=== PATIENT | male | born 1975 | race Caucasian/White ===

== ENCOUNTER 2022-08-05 15:43 | Emergency (ER) | payer BC, SELFPAY ==
--- NOTE | ~2022-08-05 | CT_ITS ---
EXAMINATION: CT ABDOMEN AND PELVIS WITH CONTRAST CLINICAL INFORMATION: Left lower quadrant pain. COMPARISON: None available. TECHNIQUE: Multidetector volumetric images were obtained from the superior aspect of the liver through the pubic symphysis following administration 85 mL of Omnipaque 350 intravenous contrast. Sagittal and coronal reformatted images were obtained on the technologist's workstation. Oral contrast: No This CT examination was performed using dose optimization techniques as appropriate, variously including the following: *Automated exposure control *Adjustment of mA and/or kV according to patient size (this includes techniques or standardized protocols for targeted exams where dose is matched to indication/reason for exam; i.e. extremities or head) *Use of iterative reconstruction technique DLP: 658 mGy-cm FINDINGS: LUNG BASES: The visualized lung bases are unremarkable. LIVER, GALLBLADDER, AND BILIARY TREE: The liver is normal in size, shape, and attenuation. No focal hepatic lesion. Cholecystectomy with expected mild extrahepatic biliary ductal dilatation. No intrahepatic biliary ductal dilatation. PANCREAS: Unremarkable. SPLEEN: Unremarkable. ADRENAL GLANDS: Unremarkable. KIDNEYS AND URETERS: Hyperattenuating foci bilaterally are likely related with excretion of IV contrast, limiting evaluation of small calculi. Symmetric nephrograms. No hydronephrosis. Too small to characterize cortical hypodensity in the anterior lower left kidney (3:40), statistically favored to represent a simple cyst and for which no imaging follow-up is recommended. No perinephric fat stranding. BLADDER: Partially under distended limiting assessment of wall thickening. No perivesical fat stranding. No calcified intraluminal calculi. GASTROINTESTINAL TRACT: The stomach and the small bowel are nondilated. Normal appendix. Wall thickening with pericolonic fat stranding within a moderate to long segment of the descending colon. Background of colonic diverticulosis. No free air or organized extraluminal collection. No evidence of bowel obstruction. ABDOMINAL WALL: Fat-containing upper anterior abdominal wall hernias. A 2.2 cm soft tissue nodule along the undersurface of these hernias (3:24), is nonspecific but could be associated with prior postsurgical changes, correlate with surgical history. LYMPH NODES: No lymphadenopathy. VASCULAR: Abdominal aorta is normal in caliber. PELVIC VISCERA: Subtle coarse prostatic calcifications. Symmetric seminal vesicles. OSSEOUS STRUCTURES: No acute or aggressive appearing osseous abnormalities. CT/CT abdomen pelvis w IV con IMPRESSION: 1. Wall thickening and associated inflammatory changes involving a moderate to long segment of the descending colon within a background of diverticulosis. The degree of wall thickening with respect to the inflammatory changes, as well as the long segment favors acute colitis from over diverticulitis, although acute diverticulitis is not entirely excluded. No evidence of complications such as free air or organized extraluminal collection. Correlation with an outpatient colonoscopy is recommended after resolution of the acute process when clinically indicated for further evaluation and ensure the absence of underlying lesions. 2. Fat-containing upper anterior abdominal wall hernias. A 2.2 cm soft tissue nodule along the undersurface of these hernias is nonspecific but could be associated with prior postsurgical changes, correlate with physical examination and surgical history.
[2022-08-05 15:50] VITALS: BP 116/75; PULSE 93; RESP 20; TEMP 36.6; O2SAT 100; BMI 29.3
--- NOTE | 2022-08-05 15:51 | ED.GENADULT ---
HPI - General Adult General Chief complaint: Abdominal Pain Stated complaint: pain Time Seen by Provider: 08/05/22 16:10 Source: patient Mode of arrival: ambulatory Limitations: no limitations History of Present Illness HPI narrative: Patient comes to the emergency room complaining of nausea, left lower quadrant pain starting this morning. Patient states that he has history of diverticulitis and the pain is very similar. Denies history of kidney stones, denies hematuria or dysuria. Related Data Previous Rx's Medication Instructions Recorded levofloxacin 500 mg tablet 500 mg PO DAILY #9 tabs 08/05/22 metronidazole 500 mg tablet 500 mg PO BID #19 tabs 08/05/22 oxycodone 5 mg tablet 5 mg PO BID PRN pain #7 tabs 08/05/22 polyethylene glycol 3350 17 gram 17 g PO DAILY PRN laxative effect 08/05/22 oral powder packet (ClearLax) #14 ea Allergies Allergy/AdvReac Type Severity Reaction Status Date / Time No Known Allergies Allergy Verified 08/05/22 15:50 Review of Systems Review of Systems: Constitutional : No Weight loss, No Fever, No Chills, No Night Sweats, No Fatigue, No Malaise ENT/Mouth : No Hearing loss, No Ear Pain, No Nasal Congestion, No Sinus Pain, No Hoarseness, No sore throat, No Rhinorrhea, No Swallowing Difficulty Eyes: No Eye Pain, No Swelling, No Redness, No Foreign Body, No Discharge, No Vision Changes Cardiovascular : No Chest Pain, No SOB, No Dyspnea on Exertion, No Orthopnea, No Edema, No Palpitations Respiratory : No Cough, No Sputum, No Wheezing, No Smoke Exposure, No Dyspnea Gastrointestinal : Complaining of Nausea, No Vomiting, No Diarrhea, No Constipation, complaining of constant left lower quadrant pain nonradiating, no melena Genitourinary : no irregular bleeding, No Dysuria, No Urinary Frequency, No Hematuria, No Urinary Incontinence, No Urgency, No Flank Pain, No Urinary Flow Changes, No Hesitancy Musculoskeletal : No joint pain, No Myalgias, No Joint Swelling Skin : No Skin Lesions, No rash Neuro : No Weakness, No Numbness, No Paresthesias, No Loss of Consciousness, No Dizziness, No Headache Psych : No Anxiety/Panic, No Depression, No SI/HI/AH/VH, No Social Issues, Heme/Lymph: No Bruising, No Bleeding,No Lymphadenopathy Endocrine : No Polyuria, No Polydipsia, No Temperature Intolerance [facility] Past Medical History Medical History (Updated 08/05/22 @ 19:52 by Libertad Mccartney MD) Diverticulitis Surgical History (Updated 08/05/22 @ 16:19 by Libertad Mccartney MD) H/O hernia repair Social History Social History Alcohol intake: current Alcohol intake frequency: holidays/special occasions only Smoked in Last 30 Days: Yes Use of substances other than those prescribed or required for medical reasons: No Advance Directives: No Advance Directives Information Provided: No Physical Exam ED Vital Signs: Vital Signs - 24 hr 08/05/22 15:50 08/05/22 16:00 08/05/22 16:31 Temperature 97.8 F 98.7 F Pulse Rate 93 106 H Respiratory Rate 20 Blood Pressure 116/75 141/87 H Pulse Oximetry 100 98 Oxygen Delivery Method Room Air Room Air 08/05/22 18:09 08/05/22 19:37 Temperature 98 F Pulse Rate 84 57 Respiratory Rate 18 Blood Pressure 122/65 124/78 Pulse Oximetry 98 96 Oxygen Delivery Method Room Air Room Air BMI result Body Mass Index 29.3 Const Other: Appearance: Alert. Oriented X3. Seems uncomfortable Eyes: Pupils equal, round and reactive to light. ENT: Pharynx normal. Neck: Normal inspection. Neck supple. No lymph nodes noted. No crepitus CVS: Normal heart rate and rhythm. Pulses normal. Normal S1 and S2 Respiratory: No respiratory distress. Breath sounds normal. No Wheezing. No rales Abdomen: Soft , nondistended, tender to palpation in left flank and left lower quadrant, mild rebound, no guarding, not an acute abdomen Skin: Skin warm and dry. Normal skin color. Normal skin turgor. Extremities: No lower extremity edema. No Lacerations. No Rash Neuro: Oriented X 3. No motor deficit. No sensory deficit. Moving all extremities. No slurred speech. CN 2 through 12 grossly intact Psych: calm, cooperative, normal affect Course Course Course Narrative: This is an RME: Additional HPI, ROS, PE not included below will be deferred to primary provider. Patient is a 47 year old male with history of diverticulitis presenting with sudden onset LLQ abdominal pain today. Denies fever, chills. PE - LLQ tenderness Plan labs, imaging, urine Medications Administered Discontinued Medications Generic Name Dose Route Start Last Admin Trade Name Viki PRN Reason Stop Dose Admin Hydromorphone HCl 1 mg 08/05/22 18:12 08/05/22 18:24 Hydromorphone Hcl 2 Mg Tablet PO 08/05/22 18:13 1 mg ONCE ONE Administration Sodium Chloride 1,000 mls @ 999 mls/hr 08/05/22 16:00 08/05/22 19:31 Ns IV 08/05/22 17:00 Infused .Q1H1M ANETA Infusion Iohexol 100 ml 08/05/22 17:11 08/05/22 17:11 Iohexol 350 Mg/Ml 100 Ml Infus..Btl IV 08/05/22 17:12 85 ml ONCE ONE Administration Morphine Sulfate 4 mg 08/05/22 15:49 08/05/22 16:43 Morphine Sulfate 4 Mg/Ml Cartridge IVPUSH 08/05/22 15:50 4 mg ONCE ONE Administration Protocol Ondansetron HCl 4 mg 08/05/22 16:14 08/05/22 16:43 Ondansetron Hcl 4 Mg/2 Ml Vial IVPUSH 08/05/22 16:15 4 mg ONCE ONE Administration Medical Decision Making Medical Decision Making MDM Narrative: -on arrival, patient looked very uncomfortable, admission was considered for possible diverticulitis versus colitis. -my interpretation of CT scan of the abdomen/pelvis: No free air, perforation not suspected -patient states that he feels much better. I discussed with the patient and his the option of keeping him in the hospital. Patient states that he would like to be discharged home, and if anything changes or if the pain worsens, he will return to the emergency room. -patient was given the 1st dose of levofloxacin and metronidazole. -pain is well controlled. -vitals stable, blood pressure 124/78, sepsis not suspected. Admission/Observation Consideration of admission/observation: Escalation of care including admission/observation considered Lab Data [facility] Lab Attestation statement: I reviewed the patient's lab results. 08/05/22 16:12 08/05/22 16:12 Labs: Lab Results 08/05/22 08/05/22 08/05/22 Range/Units 16:12 16:12 16:12 WBC 14.0 H (4.8-10.8) X10*3/uL RBC 5.18 (4.60-5.80) X10*6/uL Hgb 15.9 (14.0-18.0) g/dl Hct 45.8 (42.0-52.0) % MCV 88.4 (80.0-98.0) fL MCH 30.7 (27.0-33.0) pg MCHC 34.7 (31.0-36.0) g/dl RDW 11.8 (11.0-16.0) % Plt Count 278 (160-400) X10*3/uL MPV 10.3 (9.4-12.4) fL Immature Gran % (Auto) 0.3 (0.0-0.4) % Neut % (Auto) 65.4 (45-73) % Lymph % (Auto) 25.3 (20-40) % Winn % (Auto) 6.7 (2-11) % Eos % (Auto) 1.8 (0-4) % Baso % (Auto) 0.5 (0-2) % Lymph # (Auto) 3.5 (1.2-4.9) X10*3/uL Winn # (Auto) 0.9 (0.1-1.2) X10*3/uL Eos # (Auto) 0.3 (0.0-0.4) X10*3/uL Baso # (Auto) 0.1 (0.0-0.2) X10*3/uL Abs Immat Gran (auto) 0.04 H (0.00-0.03) X10*3/uL Absolute Neuts (auto) 9.1 H (2.0-8.3) x10*3/uL Absolute Nucleated RBC 0.000 (0.0-0.012) X10*3/uL Nucleated RBC % (auto) 0.0 (0.0-0.2) /100WBC Sodium 140 (135-145) mmol/L Potassium 3.7 (3.3-5.1) mmol/L Chloride 107 (96-108) mmol/L Carbon Dioxide 21 L (22-29) mmol/L Anion Gap 16 (12-20) BUN 19 H (9-16) mg/dL Creatinine 0.92 (0.5-1.4) mg/dL Estim Creat Clear Calc 122.6 Estimated GFR > 60 Random Glucose 107 (60-115) mg/dL Lactic Acid 1.5 (0.5-2.0) mmol/L Calcium 10.3 H (8.4-10.2) mg/dL Magnesium 2.1 (1.6-2.6) mg/dL Total Bilirubin 0.8 (0.0-1.0) mg/dL AST 19 (5-37) U/L ALT 23 (0-40) U/L Alkaline Phosphatase 72 (39-117) U/L Total Protein 8.1 H (6.5-8.0) g/dL Albumin 4.7 (3.5-5.0) g/dL Lipase 22 (8-78) U/L Urine Color Urine Appearance Urine pH (5.0-9.0) Ur Specific [place] (1.005-1.025) Urine Protein (Neg-Trace) mg/dL Urine Glucose (UA) (Negative) mg/dL Urine Ketones (Negative) mg/dL Urine Blood (Negative) Urine Nitrite (Negative) Ur Leukocyte Esterase (Negative) 08/05/22 Range/Units 16:12 WBC (4.8-10.8) X10*3/uL RBC (4.60-5.80) X10*6/uL Hgb (14.0-18.0) g/dl Hct (42.0-52.0) % MCV (80.0-98.0) fL MCH (27.0-33.0) pg MCHC (31.0-36.0) g/dl RDW (11.0-16.0) % Plt Count (160-400) X10*3/uL MPV (9.4-12.4) fL Immature Gran % (Auto) (0.0-0.4) % Neut % (Auto) (45-73) % Lymph % (Auto) (20-40) % Winn % (Auto) (2-11) % Eos % (Auto) (0-4) % Baso % (Auto) (0-2) % Lymph # (Auto) (1.2-4.9) X10*3/uL Winn # (Auto) (0.1-1.2) X10*3/uL Eos # (Auto) (0.0-0.4) X10*3/uL Baso # (Auto) (0.0-0.2) X10*3/uL Abs Immat Gran (auto) (0.00-0.03) X10*3/uL Absolute Neuts (auto) (2.0-8.3) x10*3/uL Absolute Nucleated RBC (0.0-0.012) X10*3/uL Nucleated RBC % (auto) (0.0-0.2) /100WBC Sodium (135-145) mmol/L Potassium (3.3-5.1) mmol/L Chloride (96-108) mmol/L Carbon Dioxide (22-29) mmol/L Anion Gap (12-20) BUN (9-16) mg/dL Creatinine (0.5-1.4) mg/dL Estim Creat Clear Calc Estimated GFR Random Glucose (60-115) mg/dL Lactic Acid (0.5-2.0) mmol/L Calcium (8.4-10.2) mg/dL Magnesium (1.6-2.6) mg/dL Total Bilirubin (0.0-1.0) mg/dL AST (5-37) U/L ALT (0-40) U/L Alkaline Phosphatase (39-117) U/L Total Protein (6.5-8.0) g/dL Albumin (3.5-5.0) g/dL Lipase (8-78) U/L Urine Color Yellow Urine Appearance Clear Urine pH 5.0 (5.0-9.0) Ur Specific [place] >= 1.030 H (1.005-1.025) Urine Protein Negative (Neg-Trace) mg/dL Urine Glucose (UA) Negative (Negative) mg/dL Urine Ketones Trace (Negative) mg/dL Urine Blood Negative (Negative) Urine Nitrite Negative (Negative) Ur Leukocyte Esterase Negative (Negative) Radiology Impression Discussion of test interpretation with radiology: I have reviewed the radiologist's reading. Radiologist Impression: FINDINGS: LUNG BASES: The visualized lung bases are unremarkable.? LIVER, GALLBLADDER, AND BILIARY TREE: The liver is normal in size, shape, and attenuation. No focal hepatic lesion. Cholecystectomy with expected mild extrahepatic biliary ductal dilatation. No intrahepatic biliary ductal dilatation. PANCREAS: Unremarkable.? SPLEEN: Unremarkable.? ADRENAL GLANDS: Unremarkable.? KIDNEYS AND URETERS: Hyperattenuating foci bilaterally are likely related with excretion of IV contrast, limiting evaluation of small calculi. Symmetric nephrograms. No hydronephrosis. Too small to characterize cortical hypodensity in the anterior lower left kidney (3:40), statistically favored to represent a simple cyst and for which no imaging follow-up is recommended. No perinephric fat stranding.? BLADDER: Partially under distended limiting assessment of wall thickening. No perivesical fat stranding. No calcified intraluminal calculi.? GASTROINTESTINAL TRACT: The stomach and the small bowel are nondilated. Normal appendix. Wall thickening with pericolonic fat stranding within a moderate to long segment of the descending colon. Background of colonic diverticulosis. No free air or organized extraluminal collection. No evidence of bowel obstruction.? ABDOMINAL WALL: Fat-containing upper anterior abdominal wall hernias. A 2.2 cm soft tissue nodule along the undersurface of these hernias (3:24), is nonspecific but could be associated with prior postsurgical changes, correlate with surgical history.? LYMPH NODES: No lymphadenopathy. VASCULAR: Abdominal aorta is normal in caliber. PELVIC VISCERA: Subtle coarse prostatic calcifications. Symmetric seminal vesicles.? OSSEOUS STRUCTURES: No acute or aggressive appearing osseous abnormalities.? CT/CT abdomen pelvis w IV con IMPRESSION: 1.? Wall thickening and associated inflammatory changes involving a moderate to long segment of the descending colon within a background of diverticulosis. The degree of wall thickening with respect to the inflammatory changes, as well as the long segment favors acute colitis from over diverticulitis, although acute diverticulitis is not entirely excluded. No evidence of complications such as free air or organized extraluminal collection. Correlation with an outpatient colonoscopy is recommended after resolution of the acute process when clinically indicated for further evaluation and ensure the absence of underlying lesions. 2.? Fat-containing upper anterior abdominal wall hernias. A 2.2 cm soft tissue nodule along the undersurface of these hernias is nonspecific but could be associated with prior postsurgical changes, correlate with physical examination and surgical history. Discharge Plan Discharge Clinical Impression: Diverticulitis Patient Disposition: Home, Self-Care Instructions: Diverticulitis (ED), Diverticulitis Diet (ED) Additional Instructions: Please follow-up with your primary care physician tomorrow. If you have any worsening or new symptoms, please return to the emergency room or call 911 Prescriptions: New levofloxacin 500 mg tablet 500 mg PO DAILY Qty: 9 0RF metronidazole 500 mg tablet 500 mg PO BID Qty: 19 0RF oxycodone 5 mg tablet 5 mg PO BID PRN (Reason: pain) Qty: 7 0RF Rx Instructions: Partial Fill upon patient request. polyethylene glycol 3350 [ClearLax] 17 gram powder in packet 17 g PO DAILY PRN (Reason: laxative effect) Qty: 14 0RF
[2022-08-05 16:00] VITALS: TEMP 37.1; O2SAT 98
--- NOTE | 2022-08-05 16:16 | PC.NURSE ---
Alert and oriented. states left sided 10/10 abdominal pain, states hx of diverticulitits but this is the worst pain he has ever had from it. Denies chest pain or sob, or headache. Denies pain with urination or blood in urine. States pain is only on left side, tender to touch.
[2022-08-05 16:22] LABS: MANUAL DIFF FLAG NO
[2022-08-05 16:26] LABS: Appearance Urine Clear; Basophils Absolute Auto 0.1 X10*3/uL (0.0-0.2); Basophils Percent Auto 0.5 % (0-2); Color Urine Yellow; Eosinophils Absolute Auto 0.3 X10*3/uL (0.0-0.4); Eosinophils Percent Auto 1.8 % (0-4); Glucose Urine UA Negative (Negative); Hematocrit 45.8 % (42.0-52.0); Hemoglobin 15.9 g/dl (14.0-18.0); Imm Gran Abs Auto 0.04 X10*3/uL (0.00-0.03); Imm Gran Pct Auto 0.3 % (0.0-0.4); Leukocyte Esterase Urine Negative (Negative); Lymphocytes Absolute Auto 3.5 X10*3/uL (1.2-4.9); Lymphocytes Percent Auto 25.3 % (20-40); Mean Corpuscular HGB Conc 34.7 g/dl (31.0-36.0); Mean Corpuscular Hemoglobin 30.7 pg (27.0-33.0); Mean Corpuscular Volume 88.4 fL (80.0-98.0); Mean Platelet Volume 10.3 fL (9.4-12.4); Monocytes Absolute Auto 0.9 X10*3/uL (0.1-1.2); Monocytes Percent Auto 6.7 % (2-11); Neutrophils Absolute Auto 9.1 x10*3/uL (2.0-8.3); Neutrophils Percent Auto 65.4 % (45-73); Nitrite Urine Negative (Negative); Platelet Count 278 X10*3/uL (160-400); Red Blood Count 5.18 X10*6/uL (4.60-5.80); Red Cell Distribution Width 11.8 % (11.0-16.0); Specific Gravity - Urine >= 1.030 (1.005-1.025); Urine Blood Negative (Negative); Urine Ketones Trace mg/dL (Negative); Urine Protein Negative (Neg-Trace)
[2022-08-05 16:31] VITALS: BP 141/87; PULSE 106
[2022-08-05 16:37] LABS: Lactic Acid 1.5 mmol/L (0.5-2.0)
[2022-08-05 16:42] LABS: Alanine Aminotransferase 23 U/L (0-40); Albumin Level 4.7 g/dL (3.5-5.0); Alkaline Phosphatase 72 U/L (39-117); Anion Gap 16 (12-20); Aspartate Amino Transferase 19 U/L (5-37); Bilirubin Total 0.8 mg/dL (0.0-1.0); Blood Urea Nitrogen 19 mg/dL (9-16); Calcium 10.3 mg/dL (8.4-10.2); Carbon Dioxide 21 mmol/L (22-29); Chloride 107 mmol/L (96-108); Creatinine Clr Calc Pharmacy 122.6; Estimated Glomerular Filt Rate > 60; Glucose Random 107 mg/dL (60-115); Lipase 22 U/L (8-78); Magnesium 2.1 mg/dL (1.6-2.6); Potassium 3.7 mmol/L (3.3-5.1); Sodium 140 mmol/L (135-145); Total Protein 8.1 g/dL (6.5-8.0)
[2022-08-05] MEDS: ondansetron HCL 4 MG/2 ML VIAL IVPUSH (16:43)
[2022-08-05] MEDS: 0.9 % Sodium Chloride 1,000 ML 999 ML IV (16:43)
[2022-08-05] MEDS: Morphine Sulfate 4 MG/ML CARTRIDGE IVPUSH (16:43)
--- NOTE | 2022-08-05 16:57 | PC.NURSE ---
Medicated with prn morphine and zofran with good effect.
[2022-08-05] MEDS: iohexoL 350 MG/ML 100 ML INFUS..BTL IV (17:11)
[2022-08-05 18:09] VITALS: BP 122/65; PULSE 84; RESP 18; O2SAT 98
[2022-08-05] MEDS: HYDROmorphone HCl 2 MG TABLET 1 MG PO (18:24)
--- NOTE | 2022-08-05 18:25 | PC.NURSE ---
reports 8/10 right sided abdominal pain. Provider aware, new order obtained and medicated per order/
[2022-08-05 19:37] VITALS: BP 124/78; PULSE 57; TEMP 36.6; O2SAT 96
[2022-08-05] MEDS: levoFLOXacin 500 MG TABLET PO (19:59)
[2022-08-05] MEDS: metroNIDAZOLE 500 MG TABLET PO (19:59)
== END 2022-08-05 20:02 | disposition home or self-care (01) ==
PROVIDERS: Physician Assistant; Emergency Provider Emergency Medicine
DX: K57.92 Diverticulitis of intestine, part unspecified, without perforation or abscess without bleeding (principal); R10.32 Left lower quadrant pain; Z79.899 Other long term (current) drug therapy
CPT/HCPCS: 36415; 74177; 80053; 81003; 83605; 83690; 83735; 85025; 87040; 96361; 96374; 96375; 99285; J2270; J2405; Q9967

== ENCOUNTER 2022-11-02 23:35 | Emergency (ER) | payer BC, SELFPAY ==
--- NOTE | ~2022-11-02 | CT_ITS ---
EXAMINATION: CT ABDOMEN AND PELVIS WITH CONTRAST CLINICAL INFORMATION: Pain. COMPARISON: 08/05/2022. TECHNIQUE: Multidetector volumetric images were obtained from the superior aspect of the liver through the pubic symphysis following administration 85 mL of Omnipaque 350 intravenous contrast. Sagittal and coronal reformatted images were obtained on the technologist's workstation. Oral contrast: No This CT examination was performed using dose optimization techniques as appropriate, variously including the following: *Automated exposure control *Adjustment of mA and/or kV according to patient size (this includes techniques or standardized protocols for targeted exams where dose is matched to indication/reason for exam; i.e. extremities or head) *Use of iterative reconstruction technique DLP: 625 mGy-cm FINDINGS: LUNG BASES: The visualized lung bases are unremarkable. LIVER, GALLBLADDER, AND BILIARY TREE: The liver is normal in size, shape, and attenuation. No focal hepatic lesion or biliary ductal dilatation is present. There has been a prior cholecystectomy. PANCREAS: Unremarkable. SPLEEN: Unremarkable. ADRENAL GLANDS: Unremarkable. KIDNEYS AND URETERS: The kidneys are normal in size, shape, and attenuation. No hydronephrosis, hydroureter, or calculi seen. No perinephric stranding. There is a subcentimeter hypodensity lower pole left kidney likely a small cyst. BLADDER: Unremarkable. GASTROINTESTINAL TRACT: There is diffuse diverticulosis with mid descending colonic thickening and surrounding infiltration. ABDOMINAL WALL: No significant hernia is appreciated. LYMPH NODES: Normal. VASCULAR: Unremarkable. PELVIC VISCERA: Unremarkable. OSSEOUS STRUCTURES: There is moderate L5-S1 disc degenerative change with a prominent posterior osteophyte and disc bulge as well as facet osteoarthritic hypertrophic change with mild spinal canal and moderate neuroforaminal narrowing. CT/CT abdomen pelvis w IV con IMPRESSION: Diffuse diverticulosis with acute diverticulitis of the mid descending colon. Fleischner guidelines were followed.
[2022-11-02 23:40] VITALS: BP 136/65; PULSE 96; RESP 22; TEMP 36.6; O2SAT 99; BMI 29.0
[2022-11-03 00:10] LABS: Hematocrit 43.2 % (42.0-52.0); Mean Corpuscular HGB Conc 34.7 g/dl (31.0-36.0); Mean Corpuscular Hemoglobin 30.6 pg (27.0-33.0); Mean Corpuscular Volume 88.2 fL (80.0-98.0); Platelet Count 261 X10*3/uL (160-400); Red Cell Distribution Width 12.1 % (11.0-16.0); White Blood Count 14.8 X10*3/uL (4.8-10.8)
[2022-11-03 00:24] LABS: Alanine Aminotransferase 23 U/L (0-40); Albumin Level 4.3 g/dL (3.5-5.0); Alkaline Phosphatase 71 U/L (39-117); Anion Gap 13 (12-20); Aspartate Amino Transferase 18 U/L (5-37); Bilirubin Total 0.7 mg/dL (0.0-1.0); Blood Urea Nitrogen 17 mg/dL (9-16); Calcium 9.7 mg/dL (8.4-10.2); Carbon Dioxide 22 mmol/L (22-29); Chloride 107 mmol/L (96-108); Creatinine Clr Calc Pharmacy 119.4; Estimated Glomerular Filt Rate > 60; Glucose Random 109 mg/dL (60-115); Lipase 17 U/L (8-78); Potassium 4.3 mmol/L (3.3-5.1); Sodium 138 mmol/L (135-145); Total Protein 7.4 g/dL (6.5-8.0)
--- NOTE | 2022-11-03 00:51 | PC.NURSE ---
gave pt a urinal, pt sts does not have to go at this time however will let us know when he does. Left urinal at bedside with call vázquez in reach
[2022-11-03] MEDS: ondansetron HCL 4 MG/2 ML VIAL IVPUSH (01:03)
[2022-11-03] MEDS: Morphine Sulfate 4 MG/ML CARTRIDGE IVPUSH (01:03)
[2022-11-03] MEDS: 0.9 % Sodium Chloride 1,000 ML 999 ML IV (01:03)
[2022-11-03 01:06] VITALS: BP 124/71
--- NOTE | 2022-11-03 01:12 | ED.GENADULT ---
HPI - General Adult General Chief complaint: Abdominal Pain Stated complaint: Diverticulitis flare up Time Seen by Provider: 11/03/22 00:40 Source: patient, RN notes reviewed and old records reviewed Mode of arrival: ambulatory Limitations: no limitations History of Present Illness HPI narrative: 47-year-old male presents for evaluation of left flank pain that radiates to his abdomen. Patient has a history of a diverticulitis and reports that this feels similar. His pain started yesterday morning but got worse around 9:30 p.m. last night He states his pain is now 10/10 He reports he had 1 bowel movement today. Denies any fevers but endorses subjective chills He is due to have a colonoscopy next Sunday and will then begin planning for a partial colon resection due to frequent diverticulitis episodes Denies any difficulty urinating Related Data Previous Rx's Medication Instructions Recorded levofloxacin 500 mg tablet 500 mg PO DAILY #9 tabs 08/05/22 metronidazole 500 mg tablet 500 mg PO BID #19 tabs 08/05/22 oxycodone 5 mg tablet 5 mg PO BID PRN pain #7 tabs 08/05/22 polyethylene glycol 3350 17 gram 17 g PO DAILY PRN laxative effect 08/05/22 oral powder packet (ClearLax) #14 ea amoxicillin 875 mg-potassium 1 tab PO TID #21 tabs 11/03/22 clavulanate 125 mg tablet oxycodone 5 mg tablet 5 mg PO TID PRN severe pain (scale 11/03/22 score 7-10) #12 tabs Allergies Allergy/AdvReac Type Severity Reaction Status Date / Time No Known Allergies Allergy Verified 08/05/22 15:50 Review of Systems Constitutional: Constitutional: Reports chills, Denies fever(s) and Denies headache(s) ENT: Denies headache(s) Cardiovascular: Cardiovascular: Denies chest pain and Denies dyspnea Respiratory: Respiratory: Denies dyspnea Gastrointestinal: Gastrointestinal: Reports abdominal pain, Reports nausea and Denies vomiting Musculoskeletal: Musculoskeletal: Denies back pain Integumentary/Breasts: Skin/Breast: Denies rash Neurologic: Denies headache(s) [facility] Past Medical History Medical History (Updated 11/03/22 @ 02:28 by James Ariza) Diverticulitis Surgical History (Updated 08/05/22 @ 16:19 by Libertad Mccarntey MD) H/O hernia repair Social History Social History Alcohol intake: current Alcohol intake frequency: holidays/special occasions only Advance Directives: No Advance Directives Information Provided: Yes Physical Exam ED Vital Signs: Vital Signs - 24 hr 11/02/22 23:40 11/03/22 01:06 11/03/22 01:20 Temperature 98 F 98.4 F Pulse Rate 96 75 Respiratory Rate 22 H 16 Blood Pressure 136/65 124/71 115/61 Pulse Oximetry 99 97 Oxygen Delivery Method Room Air Room Air BMI result Body Mass Index 29.0 Const General: healthy appearing, alert and awake; No comfortable (Uncomfortable but nontoxic appearing) Nutritional Appearance: well nourished Orientation/consciousness: patient oriented x3 HENMT Head: Yes normocephalic and Yes atraumatic Eyes Eyelids: Yes eyelids normal Conjunctivae: conjunctivae normal Sclerae: sclerae normal Corneas: corneas normal Pupils: Equal, round and reactive pupils present EOM: EOMs intact bilaterally Neck Neck: Yes full ROM Resp Effort & Inspection: normal respiratory effort, able to speak in complete sentences and not labored GI Inspection: No distended Palpation (GI): Soft to palpation, not firm, Tenderness to palpation present (GI) in the LLQ, Guarding due to palpation present (GI) in the LLQ and not rigid Auscultation: normoactive bowel sounds Skin General skin exam: elasticity normal Neuro General: patient oriented x3 Cranial nerves: Yes Equal, round and reactive pupils present and Yes Bilaterally intact EOM present Cognition (Neuro): normal cognition Extrem Other: Moving all extremities well without any obvious deformities Course Reevaluation(s) Reevaluation #1: Your CT scan shows with acute diverticulitis without perforation or complication. Discussed results with patient. We will discharge the patient with Augmentin, oxycodone he will follow-up with his outpatient surgery. He will cancel his colonoscopy next week Time: 02:27 Medications Administered Discontinued Medications Generic Name Dose Route Start Last Admin Trade Name Freq PRN Reason Stop Dose Admin Sodium Chloride 1,000 mls @ 999 mls/hr 11/03/22 01:00 11/03/22 01:03 Ns IV 11/03/22 02:00 999 mls/hr .Q1H1M ANETA Administration Iohexol 85 ml 11/03/22 01:49 11/03/22 01:49 Iohexol 350 Mg/Ml 100 Ml Infus..Btl IV 11/03/22 01:50 85 ml ONCE ONE Administration Morphine Sulfate 4 mg 11/03/22 00:51 11/03/22 01:03 Morphine Sulfate 4 Mg/Ml Cartridge IVPUSH 11/03/22 00:52 4 mg ONCE ONE Administration Protocol Ondansetron HCl 4 mg 11/03/22 00:51 11/03/22 01:03 Ondansetron Hcl 4 Mg/2 Ml Vial IVPUSH 11/03/22 00:52 4 mg ONCE ONE Administration Medical Decision Making Medical Decision Making [facility] Narrative: 47-year-old male presents for evaluation of left flank pain. The longstanding history of diverticulitis and is due to have a colonoscopy and then subsequently partial colon resection. Given sudden onset and waxing and waning symptoms, obstructive uropathy is also possible. The patient also reports his pain radiates to his groin which is atypical of diverticulitis. I initially planned on trying to avoid CT scanning as the patient has a history of diverticulitis, has elevated white count but is not septic. However given that there is some question of whether this is truly diverticulitis or obstructive uropathy as well as the fact the patient he needs to know for sure if he has diverticulitis because he will need to cancel the colonoscopy, we will obtain a CT scan of the abdomen pelvis. Patient medicated IV fluids, morphine, Zofran Differential Diagnosis Differential Diagnoses: The differential diagnosis associated with the presentation includes Acute diverticulitis Bowel perforation Obstructive uropathy Abdominal pain Bowel obstruction Lab Data [facility] Lab Attestation statement: I reviewed the patient's lab results. Leukocytosis of 14.8 K, no anemia normal platelet count. No electrolyte abnormalities. Patient's BUN is just above normal at 17 1 normal creatinine 0.94. 11/02/22 23:52 11/02/22 23:52 Labs: Lab Results 11/02/22 Range/Units 23:52 WBC 14.8 H (4.8-10.8) X10*3/uL RBC 4.90 (4.60-5.80) X10*6/uL Hgb 15.0 (14.0-18.0) g/dl Hct 43.2 (42.0-52.0) % MCV 88.2 (80.0-98.0) fL MCH 30.6 (27.0-33.0) pg MCHC 34.7 (31.0-36.0) g/dl RDW 12.1 (11.0-16.0) % Plt Count 261 (160-400) X10*3/uL MPV 10.0 (9.4-12.4) fL Absolute Nucleated RBC 0.000 (0.0-0.012) X10*3/uL Nucleated RBC % (auto) 0.0 (0.0-0.2) /100WBC Sodium 138 (135-145) mmol/L Potassium 4.3 (3.3-5.1) mmol/L Chloride 107 (96-108) mmol/L Carbon Dioxide 22 (22-29) mmol/L Anion Gap 13 (12-20) BUN 17 H (9-16) mg/dL Creatinine 0.94 (0.5-1.4) mg/dL Estim Creat Clear Calc 119.4 Estimated GFR > 60 Random Glucose 109 (60-115) mg/dL Calcium 9.7 (8.4-10.2) mg/dL Total Bilirubin 0.7 (0.0-1.0) mg/dL AST 18 (5-37) U/L ALT 23 (0-40) U/L Alkaline Phosphatase 71 (39-117) U/L Total Protein 7.4 (6.5-8.0) g/dL Albumin 4.3 (3.5-5.0) g/dL Lipase 17 (8-78) U/L Discharge Plan Discharge Clinical Impression: Diverticulitis Patient Disposition: Home, Self-Care Instructions: Diverticulitis (ED) Additional Instructions: Use Motrin/Tylenol for pain. Use oxycodone for more severe, breakthrough pain. This may make you sleepy, do not drink alcohol or drive after taking it Take Augmentin 3 times a day for the next 7 days Return for new or worsening symptoms, especially develop a fever, severe pain that is not improved or if your vomiting and unable to take your medications You should call your GI doctor to cancel your colonoscopy Prescriptions: New oxycodone 5 mg tablet 5 mg PO TID PRN (Reason: severe pain (scale score 7-10)) Qty: 12 0RF Rx Instructions: Partial Fill upon patient request. amoxicillin-pot clavulanate 875-125 mg tablet 1 tab PO TID Qty: 21 0RF No Action levofloxacin 500 mg tablet 500 mg PO DAILY Qty: 9 0RF metronidazole 500 mg tablet 500 mg PO BID Qty: 19 0RF oxycodone 5 mg tablet 5 mg PO BID PRN (Reason: pain) Qty: 7 0RF Rx Instructions: Partial Fill upon patient request. polyethylene glycol 3350 [ClearLax] 17 gram powder in packet 17 g PO DAILY PRN (Reason: laxative effect) Qty: 14 0RF
[2022-11-03 01:20] VITALS: BP 115/61; PULSE 75; RESP 16; TEMP 36.9; O2SAT 97
[2022-11-03] MEDS: iohexoL 350 MG/ML 100 ML INFUS..BTL 85 ML IV (01:49)
[2022-11-03 02:37] VITALS: BP 115/70; PULSE 75; RESP 16; TEMP 36.7; O2SAT 96
[2022-11-03] MEDS: Amoxicillin/Potassium Clav 875 MG TABLET PO (02:40)
[2022-11-03] MEDS: oxyCODONE HCl Immed Release 5 MG TABLET PO (02:40)
== END 2022-11-03 02:47 | disposition home or self-care (01) ==
PROVIDERS: Emergency Medicine; Emergency Provider Internal Medicine; PCP Internal Medicine
DX: K57.32 Diverticulitis of large intestine without perforation or abscess without bleeding (principal); Z79.899 Other long term (current) drug therapy
CPT/HCPCS: 36415; 74177; 80053; 83690; 85027; 96374; 96375; 99284; 99285; J2270; J2405; Q9967